=== PATIENT | male | born 1990 | race American Indian/Alaskan Native ===

== ENCOUNTER 2016-10-10 19:22 | Emergency (ER) | payer SELFPAY ==
[2016-10-10 19:28] VITALS: BP 124/86
[2016-10-10] MEDS ORDERED: COLACE PO ONE ×2 (22:07→22:17)
[2016-10-10] MEDS ORDERED: HYDROGEN PEROXIDE ONE (22:46)
--- NOTE | 2016-10-10 22:49 | Emergency Department Report ---
ED ENT HPI - General Chief complaint: Earache Stated complaint: POSS FOREIGN BODY RIGHT EAR Time Seen by Provider: 10/10/16 21:09 Source: patient Mode of arrival: Ambulatory Limitations: No Limitations - History of Present Illness Initial comments: Patient is a 26 year old male who presents to the ED for foreign body in the right ear and pain with it. Relates that a piece of cotton was stuck in his right ear about 1 week ago and he has been trying to get it out since then, although is unable to. Relates pain increased today and thus came to ED. complaint: ear pain Onset/Timin -: week(s) Location: R ear Severity: moderate Severity scale (0 -10): 7 Quality: aching Consistency: constant Improves with: none Worsens with: none Associated Symptoms: denies: fever, cough, gum swelling, toothache, sore throat , tinnitus, hearing loss, discharge from ear - Related Data Previous Rx's Medication Instructions Recorded Last Taken Type Amoxicillin [Amoxicillin TAB] 875 mg PO BID #20 tablet 10/10/16 Unknown Rx Ibuprofen [Motrin] 800 mg PO Q8HR PRN #21 tablet 10/10/16 Unknown Rx Allergies Allergy/AdvReac Type Severity Reaction Status Date / Time No Known Allergies Allergy Verified 10/10/16 19:35 ED Dental HPI - General Chief complaint: Earache Stated complaint: POSS FOREIGN BODY RIGHT EAR Time Seen by Provider: 10/10/16 21:09 Source: patient Mode of arrival: Ambulatory Limitations: No Limitations - Related Data Previous Rx's Medication Instructions Recorded Last Taken Type Amoxicillin [Amoxicillin TAB] 875 mg PO BID #20 tablet 10/10/16 Unknown Rx Ibuprofen [Motrin] 800 mg PO Q8HR PRN #21 tablet 10/10/16 Unknown Rx Allergies Allergy/AdvReac Type Severity Reaction Status Date / Time No Known Allergies Allergy Verified 10/10/16 19:35 ED Review of Systems ROS: Stated complaint: POSS FOREIGN BODY RIGHT EAR Other details as noted in HPI Constitutional: denies: chills, fever Eyes: denies: eye pain, eye discharge, vision change ENT: ear pain. denies: throat pain, dental pain, hearing loss, epistaxis, congestion Respiratory: denies: cough, shortness of breath, wheezing Cardiovascular: denies: chest pain, palpitations Skin: denies: rash, lesions Neurological: denies: headache, weakness, paresthesias Psychiatric: denies: anxiety, depression ED Past Medical Hx - Past Medical History Previous Medical History?: No - Surgical History Past Surgical History?: No - Social History Smoking Status: Current Some Day Smoker Substance Use Type: Alcohol - Medications Home Medications: Home Medications Medication Instructions Recorded Confirmed Last Taken Type Amoxicillin [Amoxicillin TAB] 875 mg PO BID #20 tablet 10/10/16 Unknown Rx Ibuprofen [Motrin] 800 mg PO Q8HR PRN #21 tablet 10/10/16 Unknown Rx ED Physical Exam - General Limitations: No Limitations General appearance: alert, in no apparent distress - Head Head exam: Present: atraumatic, normocephalic - Eye Eye exam: Present: normal appearance - ENT ENT exam: Present: mucous membranes moist - Expanded ENT Exam Expanded TM/Canal exam: Foreign Body: Right TM (a piece of cotton noted stuck to the TM. ) - Neck Neck exam: Present: normal inspection - Respiratory Respiratory exam: Present: normal lung sounds bilaterally. Absent: respiratory distress - Cardiovascular Cardiovascular Exam: Present: regular rate, normal rhythm. Absent: systolic murmur, diastolic murmur, rubs, gallop - Neurological Exam Neurological exam: Present: alert, oriented X3 - Psychiatric Psychiatric exam: Present: normal affect, normal mood ED Course Vital Signs 10/10/16 10/10/16 19:25 19:36 Temperature 98.5 F 98.5 F Pulse Rate 74 74 Respiratory 18 18 Rate Blood Pressure 124/86 Blood Pressure 124/86 [Right] O2 Sat by Pulse 100 100 Oximetry - Foreign Body Removal Ear Foreign Body Suspected: other (a tiny piece of cotton that is stuck to the TM in the right ear.) Foreign Body Removed: no Foreign Body Removal Technique: irrigation Tympanic Membrane Intact: Yes Complications: none Additional Comments: Unable to remove the piece cotton that is stuck to the patient's TM in the right ear. I spoke to patient regarding the risk of rupturing TM while trying to remove it with forceps. Spoke to patient regarding importance of follow up with ENT. patient agrees with the treatment plan and states will follow up. ED Medical Decision Making - Medical Decision Making Unable to remove the piece of cotton from the right ear. Advised patient to follow up with ENT. will start him on amoxil and motrin 800 mg for now. - Differential Diagnosis right otitis media, right otalgia, right ear foreign body Critical care attestation.: If time is entered above; I have spent that time in minutes in the direct care of this critically ill patient, excluding procedure time. ED Disposition Clinical Impression: Foreign body in right ear Qualifiers: Encounter type: initial encounter Qualified Code(s): T16.1XXA - Foreign body in right ear, initial encounter Disposition: DISCHARGED TO HOME OR SELFCARE Is pt being admited?: No Does the pt Need Aspirin: No Condition: Stable Instructions: Ear Foreign Body (ED) Prescriptions: Amoxicillin [Amoxicillin TAB] 875 mg PO BID #20 tablet Ibuprofen [Motrin] 800 mg PO Q8HR PRN #21 tablet PRN Reason: Pain , Severe (7-10) Referrals: PRIMARY CARE,MD [Primary Care Provider] - 3-5 Days Time of Disposition: 23:41
[2016-10-10] MEDS ORDERED: HYDROGEN PEROXIDE TP ONE (23:44)
== END 2016-10-10 23:49 | disposition home or self-care (01) ==
LOC: ED 19:22 → EDBD 19:22 → ED 23:49
DX: T16.1XXA Foreign body in right ear, initial encounter (principal); Y92.9 Unspecified place or not applicable
CPT/HCPCS: 99282